=== PATIENT | male | born 1995 | race Caucasian/White ===

== ENCOUNTER → 2020-03-01 10:54 | Outpatient (CLI) | payer OTHER, SELFPAY ==
--- NOTE | ~2020-03-01 | XR_ITS ---
EXAMINATION: XR UGIAC wo kub EXAM DATE: 03/01/2020 12:08 INDICATION: GERD w/o esophagitis . Symptoms with hot foods. TECHNIQUE: Standard single and double contrast barium upper GI examination was performed. The DAP for this procedure was 0.57 Gycm2. There is no prior study for comparison. FINDINGS: There is no esophageal stricture, diverticulum or mass identified. Gastroesophageal juncti on is normal in appearance. Reflux was not demonstrated during this examination. The stomach has a normal appearance without evidence of mass lesion, ulceration or filling defect. T here is normal rugal fold pattern. The duodenum and duodenal sweep are normal in appearance. IMPRESSION: Normal exam. Reviewed, dictated and finalized at location [facility]. [facility] EXAMINING CLERK IMPRESSION: Normal exam.
== END ==
PROVIDERS: PCP Emergency Medicine; Visit Provider Emergency Medicine
DX: K21.9 Gastro-esophageal reflux disease without esophagitis (principal)
CPT/HCPCS: 74246